=== PATIENT | male | born 1955 | race Caucasian/White ===

== ENCOUNTER 2017-02-21 03:04 | Inpatient (IN) | payer MEDICARE, OTHER ==
--- NOTE | ~2017-02-21 | HP ---
History And Physical [address] [place]. [address] NAME: ERNA WILLSON : 55 STATUS : ADM Elicia PAT#: [id number] AGE: 61 ADM/REG DATE : 02/21/17 MR#: [id number] REPORT SERV DATE: 02/21/17 DICTATED BY: ALVINO DELCID DATE: 02/21/17 REPORT STATUS : Draft TRANSCRIBED BY: MODL DATE: 02/21/17 DATE OF ADMISSION: 02/21/2017 CHIEF COMPLAINT: Chest pain and passing blood in the urine. HISTORY OF PRESENT ILLNESS: This is a 61-year-old obese white male, who has a history of diabetes mellitus, coronary artery disease with stents and hypertension, who presents to the emergency room at [facility] with the above-mentioned complaint. History is obtained from the patient, his family who is at bedside, and reviewing data available on the [employer] system. According to Mr. Willson, he was in his usual state of health until about a week or so when all of this started. On the one hand, he started having chest pain off and on, shooting pains which lasted about 20 seconds 30 seconds on a scale of 8/10 in intensity. This was sometimes associated with some diaphoresis as well. No radiation. No other associated symptoms. No aggravating or relieving factors. He also had blood in his urine during this time in the last one week when the home health nurses have been following along with his primary care physician. They had taken samples of his urine for testing, but had not come back with them with any referrals. Last night, his chest pain became unbearable and he was feeling very weak and decided to come to the emergency room to be evaluated. In the emergency room, initial workup revealed normal troponin. There was no significant change in his EKG. However, a CT scan of the abdomen and pelvis revealed bilateral hydronephrosis and stone in the ureteropelvic junction as well. He also had a urinary tract infection, pancytopenia, and Hospitalist Service is asked to admit him for further evaluation and treatment. At the time of my evaluation, he denied any chest pain, palpitations, or orthopnea. He had no cough, hemoptysis, night sweats, or weight loss. He denied any recent falls or loss of consciousness. He denied any fevers, chills, nausea, vomiting, diarrhea. He denied any recent hematemesis or hematochezia. He did have a gross hematuria. No history of recent travel or exposures other than those mentioned above. PAST MEDICAL HISTORY: Significant for history of diabetes mellitus type 2, coronary artery disease with stent placement followed by ornamenter outside. He has hypertension and history of atrial fibrillation as well. SOCIAL HISTORY: He does not smoke, drink, or use recreational drugs. FAMILY HISTORY: Noncontributory. MEDICATIONS AT HOME: Reviewed by me in the chart today and reordered by me. REVIEW OF SYSTEMS: As in history of present illness. All other systems were reviewed in detail and are quite unremarkable. History And Physical [address] [address] NAME: ERNA WILLSON : 55 STATUS : ADM Elicia PAT#: [id number] AGE: 61 ADM/REG DATE : 02/21/17 MR#: [id number] REPORT SERV DATE: 02/21/17 DICTATED BY: ALVINO DELCID DATE: 02/21/17 REPORT STATUS : Draft TRANSCRIBED BY: LUPILLO DATE: 02/21/17 PHYSICAL EXAMINATION: GENERAL: This is an obese 61-year-old male, not in any acute distress. HEENT: His head is atraumatic, normocephalic. He is alert, awake, oriented to time, place, and person. His pupils are equal, reacting to light and accommodating. External ocular muscles are intact. Membranes are moist and pink. Sclerae are nonicteric. NECK: Supple with no jugular venous distention, lymphadenopathy, or thyromegaly. LUNGS: Clear to auscultation with no wheezes, rubs, or crackles. HEART: Heart sounds were regular with no murmurs, rubs, or gallops. ABDOMEN: Soft, nontender. Bowel sounds are present. EXTREMITIES: Showed no cyanosis, clubbing, or edema. NEUROLOGIC: Grossly intact. No focal sensory or motor deficits. Higher functions appeared intact. VITAL SIGNS: His vital signs today showed a temperature of 97.8, pulse 72, respirations 18 a minute, blood pressure was 134/61, oxygen saturations were 98%, breathing 2 L of oxygen via nasal cannula. LABORATORY DATA: Reviewed on the [employer] system showed a sodium of 146, potassium 3.7, chloride 115, and CO2 of 23, BUN was 22 with a creatinine of 1.05, blood glucose was 131. Troponin was 0.02 today. CBC showed a white blood cell count of 3700, hemoglobin was 10.7, hematocrit 33.2, and platelet count was 101,000. Urinalysis showed large leukocyte esterase, nitrite was negative. There were greater than 182 rbc's and wbc's with many bacteria. Films of the CT scan of his abdomen and pelvis were reviewed by me on the PACS today and interpreted by me. Official radiology report was also reviewed. There is mild to moderate right hydronephrosis secondary to a 5-mm stone in the region of the UPJ and mild left hydronephrosis secondary to a 1.2 cm stone in the collecting system, which is migrated when compared to previous study. Nonobstructing bilateral renal stones. Please see report for all the details. Chest x-ray showed increased congestion. A 12-lead EKG done in the emergency room was also reviewed and interpreted by me. There is normal sinus rhythm with a rate of 75 with a right bundle-branch block. IMPRESSION: 1. Chest pain. 2. Ureterolithiasis, acute. 3. Bilateral hydronephrosis. 4. Pancytopenia, which is chronic. 5. Urinary tract infection. 6. Diabetes mellitus type 2. 7. Coronary artery disease with stent placement. 8. Hypertension. 9. History of atrial fibrillation. PLAN: We will admit Mr. Willson to the Hospitalist Service with cardiac telemetry for a 24- hour observation. We will follow troponins and EKG to rule out acute coronary syndrome. We will go ahead and consult Cardiology Service with [facility]. We will also consult Urology Service to evaluate him. Keep him n.p.o. and offer pain control as well. We will start him on IV fluids for volume replacement at this time. Follow chemistry, electrolytes and proceed History And Physical [address] [address] NAME: ERNA WILLSON : 55 STATUS : ADM Elicia PAT#: [id number] AGE: 61 ADM/REG DATE : 02/21/17 MR#: [id number] REPORT SERV DATE: 02/21/17 DICTATED BY: ALVINO DELCID DATE: 02/21/17 REPORT STATUS : Draft TRANSCRIBED BY: MODJasper DATE: 02/21/17 accordingly. We will also start him on blood sugar control with NovoLog given subcutaneously per sliding scale. After cultures are drawn, we will start him on empiric IV antibiotics for his urinary tract infection. Follow Gram stains and cultures and proceed accordingly. He will be placed on SCDs for DVT prophylaxis while here. Further recommendations will follow after subspecialists have had a chance to see him. Meanwhile, Hospitalist Service will be following him during his stay here. /LUPILLO Alvino Delcid M.D. / [id number] CC: MD CLARENCE Ding LISA M
--- NOTE | ~2017-02-21 | DS ---
Discharge Summary [facility] [address] [place]. [address] NAME: ERNA WILLSON : 55 STATUS : DIS IN PAT#: [id number] AGE: 61 ADM/REG DATE : 02/22/17 MR#: [id number] REPORT SERV DATE: 02/25/17 DICTATED BY: LENNY HERNANDEZ DATE: 02/24/17 REPORT STATUS : Draft TRANSCRIBED BY: MODL DATE: 02/24/17 ADMISSION DATE: 02/22/2017 DISCHARGE DATE: 02/24/2017 DISCHARGE DIAGNOSES: 1. Bilateral hydronephrosis due to bilateral nephrolithiasis, status post cystoscopy with stent placement. 2. Chronic pancytopenia. 3. Cryptogenic cirrhosis. 4. Urinary tract infection. 5. Diabetes type 2. 6. Coronary artery disease. 7. Hypertension. 8. History of atrial fibrillation. 9. Intractable postoperative pain. 10.Constipation. CONSULTANTS: 1. Urology. 2. Gastroenterology. HOSPITAL COURSE: This is a 61-year-old gentleman who was admitted to the hospital with bilateral flank pain and hydronephrosis due to kidney stones. For details, please refer to H and P by Dr. Tomas. In summary, the patient was admitted and was seen by Urology. Urology went ahead and performed a cystoscopy with bilateral ureteral stent placement. The plan is for a repeat ureteroscopy sometime next week as an outpatient. The patient also had complained of atypical chest pain, but he was ruled out of acute coronary syndrome with negative EKG and negative cardiac enzymes. The patient also had complaints of abdominal bloating and perceived thought of development of ascites. The patient was given reassurance based on CT findings that did not show any ascites, however, the patient insisted that GI be consulted. The patient was seen by GI, and they agreed that the patient did not have any ascites and the patient had a compensated cirrhosis. Bowel regimen was given to the patient with relief of some of his symptoms. Unfortunately, patient continued to complain of significant amount of pain postop in his kidneys. This is understandable given the fact the patient still does have kidney stones bilaterally in the renal pelvises, however, nothing much more could be done as patient will simply need to be followed up as an outpatient. This was again clarified by Dr. Segura, the urologist. After much persuasion, patient is now being discharged home with outpatient followup instructions. The patient is a high risk for readmission simply from poorly controlled pain, however, patient is at the point of discharge being discharged home with Percocet as well as Pyridium and Levaquin, which will hopefully keep patient comfortable enough until his followup with urologist. DISPOSITION: Home. DISCHARGE MEDICATIONS: 1. Percocet 5/325 one tab p.o. q.4 hours p.r.n., 15 tablets given. Discharge Summary [address] [address] NAME: ERNA WILLSON : 55 STATUS : DIS IN PAT#: [id number] AGE: 61 ADM/REG DATE : 02/22/17 MR#: [id number] REPORT SERV DATE: 02/25/17 DICTATED BY: LENNY HERNANDEZ DATE: 02/24/17 REPORT STATUS : Draft TRANSCRIBED BY: LUPILLO DATE: 02/24/17 2. Pyridium 100 mg p.o. t.i.d. x3 days. 3. Levaquin 750 mg p.o. daily x5 additional days. Otherwise, no changes to home medications. FOLLOWUP: 1. Please follow up with PCP in the next one to two days. 2. Please follow up with Urology as instructed. A total of 40 minutes spent in coordinating this patient's discharge, a lot of which included extensive counseling. DICTATED BY: MD MAUREEN Ding/LUPILLO Lenny Hernandez MD / [id number] CC: MD Mira Ding
--- NOTE | ~2017-02-21 | OP ---
Record Of Operation [facility] [address] [place]. [address] NAME: ERNA WILLSON : 55 STATUS : ADM Elicia PAT#: [id number] AGE: 61 ADM/REG DATE : 02/21/17 MR#: [id number] REPORT SERV DATE: 02/22/17 DICTATED BY: ZAHEER GARCIA III DATE: 02/21/17 REPORT STATUS : Draft TRANSCRIBED BY: MODL DATE: 02/21/17 DATE OF PROCEDURE: 02/21/2017 PROCEDURE: Cystoscopy, bilateral retrogrades, insertion of bilateral ureteral stents. PREOPERATIVE DIAGNOSIS: Bilateral renal pelvic stones with right flank pain and UTI. POSTOPERATIVE DIAGNOSIS: Bilateral renal pelvic stones with right flank pain and UTI. ANESTHESIA: General. SURGEON: Zaheer Garcia M.D. DESCRIPTION OF PROCEDURE: Following induction of adequate general anesthesia, the patient was placed in dorsal lithotomy position and prepped and draped in a sterile fashion. The leg was carefully placed in the stirrup due to the hip problems. He was prepped and draped and cystoscopy was done. The prostate was moderately enlarged. The bladder had a good bit of debris and the right retrograde showed a normal distal ureter. The mid ureter was dilated. The upper tract was not severely dilated; however, there was a filling defect in the proximal ureter which migrated up into the upper pole. A 6/26 stent was placed on this side with loop in the bladder and a loop in the kidney. On the left side, there were also filling defects. A Pollack was placed on this side and the urine was somewhat cloudy. The patient has already been cultured and he is on antibiotics, so a second culture was not sent. A 6/24 stent was placed on this side. Mcduffie catheter was placed. IMPRESSION: The impression is that of bilateral ureteral stones. We will await the culture and at some point next week, do a bilateral ureteroscopy. OB/MODL Zaheer Garcia III, M.D. / [id number] CC: MD EVI Ding
--- NOTE | ~2017-02-21 | CN ---
Consultation Report [facility] [address] [place]. [address] NAME: CATALINO WILLSON : 55 STATUS : ADM IN PAT#: [id number] AGE: 61 ADM/REG DATE : 02/22/17 MR#: [id number] REPORT SERV DATE: 02/23/17 DICTATED BY: MUKUL ARELLANO DATE: 02/23/17 REPORT STATUS : Draft TRANSCRIBED BY: MODL DATE: 02/23/17 GI CONSULTATION DATE OF CONSULTATION: 02/23/2017 REASON FOR CONSULTATION: Evaluation and management of patient's cirrhosis. HISTORY OF PRESENT ILLNESS: Mr. Catalino Willson is a 61-year-old male patient, who is known to Dr. Gen Charles, as well as Dr. Ambrosio Quinn in the outpatient setting, who presented to [facility] on 02/22/2017 with a chief complaint of chest pain as well as abdominal discomfort, hematuria. He was ultimately diagnosed by CT scan with bilateral nephrolithiasis, calculi in the renal pelvis, hydronephrosis. He underwent cysto with stent placement with Dr. Hanson on the 02/21/2017. Since that time, he has had his Mcduffie catheter removed; however, he has had difficulty urinating, plans are to replace the Mcduffie catheter. GI was consulted to see him secondary to his history of cirrhosis. He has recently seen Dr. Ambrosio Quinn in the outpatient setting on 02/09/2017 for cryptogenic cirrhosis, appears to be compensated. Last EGD was done on 12/20/2016 with findings of fundal varices, hypertensive gastropathy. The patient requested GI consultation secondary to his sensation of increasing abdominal girth, voice concerns that he has, "fluid buildup in his abdomen". CT scan done 02/21/2017 showed no ascites. We will discuss further with Dr. Sue benefits of ultrasound of the abdomen. No immediate plans at this moment in time, however we will follow. PAST MEDICAL HISTORY: He has a past medical history positive for cryptogenic cirrhosis, upper GI bleed secondary to hypertensive gastropathy, history of splenomegaly, portal hypertension, hepatic steatosis, hematochezia, internal hemorrhoids, history of DVTs and stent placement on Plavix, pseudotumor cerebri, COPD, chronic lymphedema of the left lower extremity with a history of MSSA and enterococcus, coronary artery disease, status post PCI, pancytopenia, anemia, obstructive sleep apnea, morbid obesity, type 2 diabetes, kidney stones. FAMILY HISTORY: Positive for hepatocellular carcinoma in his father. SOCIAL HISTORY: , lives independently, past tobacco, past alcohol. No illicits. ALLERGIES: LISTED TO DILAUDID. HOME MEDICATIONS: Diamox, Ventolin, Lipitor, Plavix, Flonase, Breo Ellipta, Lasix, Neurontin, Lantus, Humalog, Atrovent, Imdur, Cozaar, Glucophage, Toprol, Singulair, nitroglycerin, Protonix, Pravachol, Incruse Ellipta, and Poly-Iron. REVIEW OF SYSTEMS: A 10-point review of systems has been obtained with pertinent positives being addressed in the history of present illness. Consultation Report [place] [place] [facility] [place]. [address] NAME: CATALINO WILLSON : 55 STATUS : ADM IN [facility]#: [id number] AGE: 61 ADM/REG DATE : 02/22/17 MR#: [id number] REPORT SERV DATE: 02/23/17 DICTATED BY: MUKUL ARELLANO DATE: 02/23/17 REPORT STATUS : Draft TRANSCRIBED BY: MODJasper DATE: 02/23/17 PERTINENT LABORATORY DATA: Sodium 144, potassium 3.7, BUN is 18, creatinine is 0.96. White count 3.7, hemoglobin 10.2, hematocrit is 31.6, platelet count is 92. CO2 is 21, albumin 3.1, total bilirubin 0.5, alkaline phosphatase 100, ALT 20, AST 18. PHYSICAL EXAMINATION: VITAL SIGNS: Temperature 96.1, pulse is 64, respirations of 20, blood pressure 128/62. GENERAL: Reveals an alert, morbidly obese, male, resting in bed. In general, he is cooperative. He is in no apparent distress. He is awake, alert, oriented x3. No signs of asterixis. HEAD, EARS, EYES, NOSE, AND THROAT: Anicteric. Pupils are equal, round, reactive to light and accommodation. Normocephalic, atraumatic. NECK: Supple. No JVD. No palpable nodes. LUNGS: Diminished throughout with normal respiratory effort exhibited. CARDIOVASCULAR SYSTEM: Regular rate and rhythm. ABDOMEN: Obese, periumbilical hernia noted which reduces no appreciable ascites. Abdomen is soft, but tender to palpation to the right lower quadrant. Active bowel sounds. No organomegaly. EXTREMITIES: Positive for lower extremity edema. SKIN: Somewhat brawny on the lower extremities, warm, dry, and intact. ASSESSMENT/PLAN: 1. Compensated cryptogenic cirrhosis with splenomegaly, portal hypertension, and hepatic steatosis. 2. Kidney stones with hydronephrosis, status post cystoscopy with stents. 3. Urinary tract infection with gram negative rods to be identified. 4. Pancytopenia. 5. Hematuria. 6. Morbid obesity. 7. Type 2 diabetes. PLAN: 1. I had a long discussion with the patient. He is concerned for ascites. I did discuss with him CT scan on the 02/21/2017 showed no ascites at all. He still voices concern and that he has increased abdominal distention. We will check an ultrasound for ascites. 2. Check LFTs, PT/INR. 3. Continue Lasix. 4. Strict I's and O's. We will follow. DG/LUPILLO Bingham Consultation Report [address] [place]. [address] NAME: CATALINO WILLSON : 55 STATUS : ADM IN [facility]#: [id number] AGE: 61 ADM/REG DATE : 02/22/17 MR#: [id number] REPORT SERV DATE: 02/23/17 DICTATED BY: MUKUL ARELLANO DATE: 02/23/17 REPORT STATUS : Draft TRANSCRIBED BY: LUPILLO DATE: 02/23/17 ANTONIO Brandt / [id number] CC: MD Mira Ding
[2017-02-21 02:39] LABS: BASOPHILS 0.3 %; BASOPHILS ABSOLUTE 0.01 10/3/uL (0.0-0.16); EOSINOPHILS 1.9 %; EOSINOPHILS ABSOLUTE 0.07 10/3/uL (0.0-0.53); ER CBC TAT 0 Hrs 05 Mins; HEMATOCRIT 33.2 % (40.0-51.0); HEMOGLOBIN 10.7 g/dL (13.6-17.8); IMMATURE GRANULOCYTES 0.3 %; IMMATURE GRANULOCYTES ABSOLUTE 0.01 10/3/uL (0.0-0.11); LYMPHOCYTES 18.6 %; LYMPHOCYTES ABSOLUTE 0.69 10/3/uL (0.67-4.30); MANUAL DIFF NO %; MEAN CORPUS HGB CONC 32.2 g/dL (32.0-36.0); MEAN CORPUSCULAR HEMOGLOB 27.6 pg (26.0-34.0); MEAN CORPUSCULAR VOLUME 85.8 fL (80-100); MEAN PLATELET VOLUME 10.7 fL (9.2-13.0); MONOCYTES ABSOLUTE 0.37 10/3/uL (0.21-1.20); NEUTROPHILS 68.9 %; NEUTROPHILS ABSOLUTE 2.55 10/3/uL (2.02-8.40); PLATELET COUNT 101 10/3/uL (150-400); RBC DISTRIBUTION WIDTH 15.3 % (12.0-16.0); RED CELL COUNT 3.87 10/6/uL (4.7-6.1); WHITE BLOOD CELLS 3.7 10/3/uL (4.5-10.5)
[2017-02-21 02:55] LABS: ALBUMIN 3.1 G/DL (3.5-5.0); CALCIUM, SERUM 8.7 MG/DL (8.5-10.4); CHEST PAIN PROFILE TAT 0 Hrs 21 Mins; CHLORIDE, SERUM 115 MMOL/L (96-112); CO2 (CARBON DIOXIDE) 23 MMOL/L (24-34); CREATININE 1.05 MG/DL (0.70-1.30); DIRECT BILIRUBIN 0.1 MG/DL (0.0-0.4); GFR AFRICAN AMERICAN 88 ML/MIN (>=60); GFR NON AFRICAN AMERICAN 76 ML/MIN (>=60); GLUCOSE, SERUM 131 MG/DL (60-99); INDIRECT BILIRUBIN(NOT ORDER) 0.4 MG/DL (0.1-0.9); SGOT(AST) 18 U/L (5-40); SGPT(ALT) 20 U/L (5-65); TOTAL BILIRUBIN 0.5 MG/DL (0-1.2); TOTAL PROTEIN 6.8 G/DL (6.0-8.5); TROPONIN I <0.02 NG/ML (<0.05)
[2017-02-21 02:56] LABS: ALKALINE PHOSPHATASE 100 U/L (45-117); BUN (BLOOD UREA NITROGEN) 22 MG/DL (6-23); POTASSIUM, SERUM 3.7 MMOL/L (3.5-5.3); SODIUM, SERUM 146 MMOL/L (135-148)
[~2017-02-21 03:04] MED LIST: ASA5GR PO; ASAB PO; ATRONASAL6 NAS; AUG875 PO; BREO ELLIPTA INH; COMBIVENT RESPIM4 GM INH; CONSTULOSE PO; COUMADIN10 MG PO; COUMADIN7.5 MG PO; COZ50 PO; DIAMSEQ PO; DULERA 100 MCG/13 GM INH; FESO4 PO; FOLIC PO; GLUCPH8 PO; HUMALOGPEN SC; ISORDIL20 PO; ISOSORB DIN30 MG PO; KDUR20 PO; L20 PO; LANTUS SC; LANTUSCART SC; LINZESS 290 M290 MCG PO; LIPITOR20 PO; LOVENOX150 SC; NEUR300 PO; NITROSTAT0.4 MG SL; NORCO1 TA1 PO; NOVOLOG SC; P10; P20 PO; PLAVIX PO; PRAVACHOL40 MG PO; PROAIR HFA INH; PROTONIX PO; SPIRIVA DEVI; SPIRIVA INH; SUCR PO; TEARS NATURA OPH; TOPAMAX50 MG PO; TOPXL25 PO; ULTRAM50 PO
[2017-02-21 03:09] LABS: INTERNATIONAL NORMAL RATI 1.7 UNITS (-)
[2017-02-21 03:10] LABS: PARTIAL THROMBO TIME 37.1 SEC (22.5-37.2)
[2017-02-21 04:33] LABS: ASCORBIC ACID (UR NOT ORDER) NEG (NEG); BILIRUBIN, URINE NEGATIVE (NEG); ER URINALYSIS TAT 0 Hrs 11 Mins; KETONE, URINE NEGATIVE (NEG); LEUKOCYTE ESTERASE(NOT OR LARGE (NEG); NITRITE (URINE) NEG (NEG); WBC (NOT ORDERED) (RFLEX) > 182 (0-5)
[2017-02-21] MEDS ORDERED: LIPITOR40 PO (06:02)
[2017-02-21] MEDS ORDERED: C5 PO (06:04)
[2017-02-21] MEDS ORDERED: PRAVACHOL40 MG PO (06:07)
[2017-02-21] MEDS ORDERED: SINGULAIR1 PO (06:08)
[2017-02-21] MEDS ORDERED: IMDUR30 PO (06:10)
[2017-02-21] MEDS ORDERED: BREO ELLIPTA 21 EACH INH (06:16)
[2017-02-21] MEDS ORDERED: INCRUSE ELLI62.5 MCG INH (06:17)
[2017-02-21] MEDS ORDERED: POLY-IRON PO (06:21)
[2017-02-21] MEDS ORDERED: LANTUS SC ×3 (06:23→09:14)
[2017-02-21] MEDS ORDERED: *UNABLE3 (06:26)
[2017-02-21] MEDS ORDERED: VENTOLIN HFA INH (09:10)
[2017-02-21] MEDS ORDERED: FLONASE NAS (09:11)
[2017-02-21] MEDS ORDERED: HUMALOG SC (09:14)
[2017-02-21 10:05] LABS: BASOPHILS 0.3 %; BASOPHILS ABSOLUTE 0.01 10/3/uL (0.0-0.16); EOSINOPHILS 1.7 %; EOSINOPHILS ABSOLUTE 0.06 10/3/uL (0.0-0.53); HEMATOCRIT 32.3 % (40.0-51.0); HEMOGLOBIN 10.4 g/dL (13.6-17.8); IMMATURE GRANULOCYTES 0.6 %; IMMATURE GRANULOCYTES ABSOLUTE 0.02 10/3/uL (0.0-0.11); LYMPHOCYTES 21.6 %; LYMPHOCYTES ABSOLUTE 0.74 10/3/uL (0.67-4.30); MEAN CORPUS HGB CONC 32.2 g/dL (32.0-36.0); MEAN CORPUSCULAR HEMOGLOB 27.8 pg (26.0-34.0); MEAN CORPUSCULAR VOLUME 86.4 fL (80-100); MEAN PLATELET VOLUME 10.3 fL (9.2-13.0); MONOCYTES 8.5 %; MONOCYTES ABSOLUTE 0.29 10/3/uL (0.21-1.20); NEUTROPHILS 67.3 %; NEUTROPHILS ABSOLUTE 2.31 10/3/uL (2.02-8.40); PLATELET COUNT 93 10/3/uL (150-400); RBC DISTRIBUTION WIDTH 15.2 % (12.0-16.0); RED CELL COUNT 3.74 10/6/uL (4.7-6.1); WHITE BLOOD CELLS 3.4 10/3/uL (4.5-10.5)
[2017-02-21 10:06] LABS: MANUAL DIFF NO %
[2017-02-21 10:17] LABS: BUN (BLOOD UREA NITROGEN) 23 MG/DL (6-23); CALCIUM, SERUM 8.3 MG/DL (8.5-10.4); CHLORIDE, SERUM 117 MMOL/L (96-112); CO2 (CARBON DIOXIDE) 21 MMOL/L (24-34); CREATININE 0.97 MG/DL (0.70-1.30); GFR AFRICAN AMERICAN 97 ML/MIN (>=60); GFR NON AFRICAN AMERICAN 84 ML/MIN (>=60); GLUCOSE, SERUM 117 MG/DL (60-99); PHOSPHORUS, SERUM 3.3 MG/DL (2.5-4.5); POTASSIUM, SERUM 3.8 MMOL/L (3.5-5.3); SODIUM, SERUM 146 MMOL/L (135-148); TROPONIN I <0.02 NG/ML (<0.05)
[2017-02-22 02:39] LABS: HEMOGLOBIN 11.2 g/dL (13.6-17.8); MANUAL DIFF YES %; MEAN CORPUSCULAR HEMOGLOB 28.1 pg (26.0-34.0); MEAN CORPUSCULAR VOLUME 87.7 fL (80-100); MEAN PLATELET VOLUME 10.3 fL (9.2-13.0); PLATELET COUNT 98 10/3/uL (150-400); RBC DISTRIBUTION WIDTH 15.2 % (12.0-16.0); RED CELL COUNT 3.99 10/6/uL (4.7-6.1); WHITE BLOOD CELLS 3.6 10/3/uL (4.5-10.5)
[2017-02-22 02:55] LABS: BUN (BLOOD UREA NITROGEN) 20 MG/DL (6-23); CALCIUM, SERUM 8.1 MG/DL (8.5-10.4); CHLORIDE, SERUM 117 MMOL/L (96-112); CO2 (CARBON DIOXIDE) 24 MMOL/L (24-34); CREATININE 0.89 MG/DL (0.70-1.30); GFR AFRICAN AMERICAN 107 ML/MIN (>=60); GFR NON AFRICAN AMERICAN 92 ML/MIN (>=60); GLUCOSE, SERUM 113 MG/DL (60-99); POTASSIUM, SERUM 3.8 MMOL/L (3.5-5.3); SODIUM, SERUM 147 MMOL/L (135-148); TROPONIN I <0.02 NG/ML (<0.05)
[2017-02-22 03:10] LABS: BAND NEUTROPHILS 2 %; LYMPHOCYTES 13 %; LYMPHOCYTES ABSOLUTE (CALC) 0.47 10/3/uL (0.67-4.30); MONOCYTES 3 %; MONOCYTES ABSOLUTE (CALC) 0.11 10/3/uL (0.21-1.20); NEUTROPHILS ABSOLUTE (CALC) 3.02 10/3/uL (2.02-8.40); PLATELET ESTIMATE DEC (ADEQUATE); RBC MORPHOLOGY NORM (NORMAL); SEGMENTED NEUTROPHIL (0) 82 %; TOTAL NUCLEATED CELLS 100
[2017-02-22 20:26] LABS: TROPONIN I <0.02 NG/ML (<0.05)
[2017-02-22 20:27] LABS: CK-MB 1.8 NG/ML; CPK 163 U/L (0-200)
[2017-02-23 05:03] LABS: BASOPHILS 0.3 %; BASOPHILS ABSOLUTE 0.01 10/3/uL (0.0-0.16); EOSINOPHILS 1.4 %; EOSINOPHILS ABSOLUTE 0.05 10/3/uL (0.0-0.53); HEMATOCRIT 31.6 % (40.0-51.0); HEMOGLOBIN 10.2 g/dL (13.6-17.8); IMMATURE GRANULOCYTES 0.3 %; IMMATURE GRANULOCYTES ABSOLUTE 0.01 10/3/uL (0.0-0.11); LYMPHOCYTES 18.3 %; LYMPHOCYTES ABSOLUTE 0.67 10/3/uL (0.67-4.30); MEAN CORPUS HGB CONC 32.3 g/dL (32.0-36.0); MEAN CORPUSCULAR HEMOGLOB 28.3 pg (26.0-34.0); MEAN CORPUSCULAR VOLUME 87.8 fL (80-100); MEAN PLATELET VOLUME 10.1 fL (9.2-13.0); MONOCYTES 10.4 %; MONOCYTES ABSOLUTE 0.38 10/3/uL (0.21-1.20); NEUTROPHILS 69.3 %; NEUTROPHILS ABSOLUTE 2.55 10/3/uL (2.02-8.40); PLATELET COUNT 92 10/3/uL (150-400); RBC DISTRIBUTION WIDTH 15.3 % (12.0-16.0); WHITE BLOOD CELLS 3.7 10/3/uL (4.5-10.5)
[2017-02-23 05:05] LABS: MANUAL DIFF NO %
[2017-02-23 05:06] LABS: BUN (BLOOD UREA NITROGEN) 18 MG/DL (6-23); CALCIUM, SERUM 7.6 MG/DL (8.5-10.4); CHLORIDE, SERUM 116 MMOL/L (96-112); CO2 (CARBON DIOXIDE) 21 MMOL/L (24-34); CPK 149 U/L (0-200); CREATININE 0.96 MG/DL (0.70-1.30); GFR AFRICAN AMERICAN 98 ML/MIN (>=60); GFR NON AFRICAN AMERICAN 85 ML/MIN (>=60); POTASSIUM, SERUM 3.7 MMOL/L (3.5-5.3); SODIUM, SERUM 144 MMOL/L (135-148); TROPONIN I <0.02 NG/ML (<0.05)
[2017-02-23 05:07] LABS: CK-MB 2.5 NG/ML; GLUCOSE, SERUM 161 MG/DL (60-99)
[2017-02-23 11:58] LABS: TROPONIN I <0.02 NG/ML (<0.05)
[2017-02-23 11:59] LABS: CK-MB 2.8 NG/ML; CPK 173 U/L (0-200)
[2017-02-24 05:11] LABS: BASOPHILS 0.3 %; BASOPHILS ABSOLUTE 0.01 10/3/uL (0.0-0.16); EOSINOPHILS 2.1 %; EOSINOPHILS ABSOLUTE 0.08 10/3/uL (0.0-0.53); HEMATOCRIT 32.4 % (40.0-51.0); HEMOGLOBIN 10.3 g/dL (13.6-17.8); IMMATURE GRANULOCYTES 0.3 %; IMMATURE GRANULOCYTES ABSOLUTE 0.01 10/3/uL (0.0-0.11); LYMPHOCYTES 19.3 %; LYMPHOCYTES ABSOLUTE 0.73 10/3/uL (0.67-4.30); MEAN CORPUS HGB CONC 31.8 g/dL (32.0-36.0); MEAN CORPUSCULAR HEMOGLOB 28.1 pg (26.0-34.0); MEAN CORPUSCULAR VOLUME 88.5 fL (80-100); MEAN PLATELET VOLUME 9.9 fL (9.2-13.0); MONOCYTES 7.7 %; MONOCYTES ABSOLUTE 0.29 10/3/uL (0.21-1.20); NEUTROPHILS 70.3 %; NEUTROPHILS ABSOLUTE 2.66 10/3/uL (2.02-8.40); PLATELET COUNT 90 10/3/uL (150-400); RED CELL COUNT 3.66 10/6/uL (4.7-6.1); WHITE BLOOD CELLS 3.8 10/3/uL (4.5-10.5)
[2017-02-24 05:14] LABS: MANUAL DIFF NO %
[2017-02-24 05:15] LABS: INTERNATIONAL NORMAL RATI 1.5 UNITS (-); PROTIME (NOT ORD) 18.2 SEC (12.0-14.5)
[2017-02-24 05:29] LABS: ALBUMIN 2.6 G/DL (3.5-5.0); BUN (BLOOD UREA NITROGEN) 15 MG/DL (6-23); CALCIUM, SERUM 7.6 MG/DL (8.5-10.4); CHLORIDE, SERUM 116 MMOL/L (96-112); CO2 (CARBON DIOXIDE) 22 MMOL/L (24-34); CREATININE 0.85 MG/DL (0.70-1.30); DIRECT BILIRUBIN 0.2 MG/DL (0.0-0.4); GFR AFRICAN AMERICAN 109 ML/MIN (>=60); GFR NON AFRICAN AMERICAN 94 ML/MIN (>=60); INDIRECT BILIRUBIN(NOT ORDER) 0.7 MG/DL (0.1-0.9); POTASSIUM, SERUM 3.9 MMOL/L (3.5-5.3); SGOT(AST) 17 U/L (5-40); SGPT(ALT) 15 U/L (5-65); SODIUM, SERUM 143 MMOL/L (135-148); TOTAL BILIRUBIN 0.9 MG/DL (0-1.2)
[2017-02-24 05:30] LABS: ALKALINE PHOSPHATASE 84 U/L (45-117); GLUCOSE, SERUM 101 MG/DL (60-99)
[2017-02-24 06:31] LABS: PROCALCITONIN 0.06 ng/mL (<0.5)
[2017-02-24] MEDS ORDERED: AZO-STANDARD95 MG PO (15:34)
[2017-02-24] MEDS ORDERED: CONSTULOSE PO (15:36)
[2017-02-24] MEDS ORDERED: CEFT5 PO (15:38)
[2017-02-24] MEDS ORDERED: PYR100B PO (15:38)
[2017-02-24] MEDS ORDERED: PCET PO (15:39)
[2017-04-18] MEDS ORDERED: PROVHFA INH (16:59)
[2017-04-18] MEDS ORDERED: PROTONIX PO (16:59)
[2017-04-18] MEDS ORDERED: D 5000 PO (17:00)
[2017-04-18] MEDS ORDERED: SINGULAIR1 PO (17:00)
[2017-04-18] MEDS ORDERED: CYANO1000T PO (17:01)
[2017-04-18] MEDS ORDERED: GLUCPH8 PO (17:01)
[2017-04-18] MEDS ORDERED: L20 PO (17:01)
[2017-04-18] MEDS ORDERED: POLY IRON 150 MG PO (17:02)
[2017-04-18] MEDS ORDERED: LIPITOR40 PO (17:02)
[2017-04-18] MEDS ORDERED: C5 PO (17:03)
[2017-04-18] MEDS ORDERED: NEUR300 PO (17:03)
[2017-04-18] MEDS ORDERED: NITROSTAT0.4 MG SL (17:03)
[2017-04-18] MEDS ORDERED: COZ50 PO (17:04)
[2017-04-18] MEDS ORDERED: IMDUR30 PO (17:04)
[2017-04-18] MEDS ORDERED: PLAVIX PO (17:05)
[2017-04-18] MEDS ORDERED: NOVOLOG SC (17:05)
[2017-04-18] MEDS ORDERED: LANTUS SC (17:05)
[2017-04-18] MEDS ORDERED: INCRUSE ELLI62.5 MCG INH (17:05)
[2017-04-18] MEDS ORDERED: BREO ELLIPTA 21 EACH INH (17:06)
[2017-04-18] MEDS ORDERED: FLONASE NAS (17:07)
[2017-04-18] MEDS ORDERED: ATRONASAL6 NAS (17:07)
[2017-04-28] MEDS ORDERED: PERCOCET 10/3251 TAB PO (20:04)
[2017-04-28] MEDS ORDERED: FLOMAX4 PO (20:05)
[2017-06-21] MEDS ORDERED: INCRUSE ELLI62.5 MCG INH (01:19)
[2017-06-21] MEDS ORDERED: FLONASE NAS (01:19)
[2017-06-21] MEDS ORDERED: ATRONASAL6 NAS (01:19)
[2017-06-21] MEDS ORDERED: BREO ELLIPTA 21 EACH INH (01:19)
[2017-06-21] MEDS ORDERED: C5 PO (01:20)
[2017-06-21] MEDS ORDERED: SINGULAIR1 PO (01:20)
[2017-06-21] MEDS ORDERED: ATV1 PO (01:20)
[2017-06-21] MEDS ORDERED: VENTOLIN HFA INH (01:20)
[2017-06-21] MEDS ORDERED: IMDUR30 PO (01:21)
[2017-06-21] MEDS ORDERED: LIPITOR40 PO (01:21)
[2017-06-21] MEDS ORDERED: NITROSTAT0.4 MG SL (01:21)
[2017-06-21] MEDS ORDERED: NEUR300 PO (01:22)
[2017-06-21] MEDS ORDERED: POLY-IRON 150MG PO (01:23)
[2017-06-21] MEDS ORDERED: COZ50 PO (01:23)
[2017-06-21] MEDS ORDERED: L20 PO (01:23)
[2017-06-21] MEDS ORDERED: FLOMAX4 PO (01:23)
[2017-06-21] MEDS ORDERED: GLUCPH8 PO (01:24)
[2017-06-21] MEDS ORDERED: PLAVIX PO (01:26)
[2017-06-21] MEDS ORDERED: NOVOLOG SC ×2 (01:26)
[2017-06-21] MEDS ORDERED: PROTONIX PO (01:27)
[2017-06-21] MEDS ORDERED: LANTUS SC (01:28)
[2017-06-21] MEDS ORDERED: VITAMIN D31000 UNIT PO (01:28)
[2017-06-21] MEDS ORDERED: VITAMIN B-122500 MCG SL (01:28)
== END 2017-02-24 18:15 | disposition home health service (06) | DRG 690 ==
LOC: ER 03:04 → 6NO 05:35
PROVIDERS: Internal Medicine; Internal Medicine Pulmonary Disease; Nurse Practitioner Family; Specialist; Urology
PROC: BT1B1ZZ Fluoroscopy of Bladder and Urethra using Low Osmolar Contrast (ICD-10-PCS; 2017-02-21)
PROC: 0T788DZ Dilation of Bilateral Ureters with Intraluminal Device, Via Natural or Artificial Opening Endoscopic (ICD-10-PCS; principal; 2017-02-21 15:15)
DX: N13.6 Pyonephrosis (principal); D61.818 Other pancytopenia; I85.00 Esophageal varices without bleeding; Z68.41 Body mass index [BMI] 40.0-44.9, adult; K76.6 Portal hypertension; E66.01 Morbid (severe) obesity due to excess calories; I48.91 Unspecified atrial fibrillation; K74.60 Unspecified cirrhosis of liver; I25.10 Atherosclerotic heart disease of native coronary artery without angina pectoris; E11.9 Type 2 diabetes mellitus without complications; G89.18 Other acute postprocedural pain; K59.00 Constipation, unspecified; K31.89 Other diseases of stomach and duodenum; K76.0 Fatty (change of) liver, not elsewhere classified; J44.9 Chronic obstructive pulmonary disease, unspecified; N40.1 Benign prostatic hyperplasia with lower urinary tract symptoms; N32.89 Other specified disorders of bladder; K64.9 Unspecified hemorrhoids; D73.2 Chronic congestive splenomegaly; R31.0 Gross hematuria; B96.4 Proteus (mirabilis) (morganii) as the cause of diseases classified elsewhere; Z86.718 Personal history of other venous thrombosis and embolism; Z79.02 Long term (current) use of antithrombotics/antiplatelets; Z87.442 Personal history of urinary calculi; Z88.5 Allergy status to narcotic agent; Z87.891 Personal history of nicotine dependence; Z79.4 Long term (current) use of insulin; Z80.0 Family history of malignant neoplasm of digestive organs
CPT/HCPCS: 36415; 71010; 74000; 74176; 74420; 80048; 80076; 81001; 82550; 82553; 82962; 83735; 84100; 84145; 84484; 85025; 85610; 85730; 86850; 86900; 86901; 87040; 87077; 87086; 87186; 93005; 94640; 96374; 96375; 99285; A9270-GY; C1758; C1769; C2617; J0330; J2250; J2270; J2405; J3010; Q9967

== ENCOUNTER 2017-03-14 23:59 | Inpatient (IN) | payer MEDICARE, OTHER ==
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
--- NOTE | ~2017-03-14 | DS ---
Discharge Summary [facility] [address] [facility] [place]. [address] NAME: ERNA WILLSON : 55 STATUS : DIS IN PAT#: [id number] AGE: 61 ADM/REG DATE : 03/15/17 MR#: [id number] REPORT SERV DATE: 03/21/17 DICTATED BY: DATE: REPORT STATUS : Draft TRANSCRIBED BY: MODL DATE: 03/18/17 ADMISSION DATE: 03/15/2017 DISCHARGE DATE: 03/18/2017 The patient was admitted to the [facility]. CONSULTANTS: Dr. Zaheer Hanson of Urology. Dr. Ji Kiser of Cardiology. DISCHARGE DIAGNOSES: 1. Systemic inflammatory response syndrome due to bilateral pyelonephritis-Pseudomonas on culture. 2. Recent indwelling Mcduffie catheterization with evidence of Mcduffie catheter dysfunction and obstructive uropathy at admission. Mcduffie catheter removed and the patient is able to void independently at the time of discharge. 3. Nephrolithiasis with recent bilateral hydronephrosis necessitating stent placement (prior admission). 4. Paroxysmal atrial fibrillation-on chronic anticoagulation-held at discharge for upcoming stent exchange and bilateral percutaneous nephrostomy. 5. Hypotension at admission-largely resolved, but necessitating adjustments in home blood pressure medications at the time of discharge. 6. Pwi-kgcnnzw-jhjdwbjfv diabetes mellitus type 2-controlled. 7. Hyperlipidemia. 8. History of coronary artery disease with remote cardiac stenting-Plavix and aspirin held at discharge for upcoming stent exchange and bilateral percutaneous nephrostomy tubes. 9. History of cryptogenic cirrhosis. 10.Stable pancytopenia, due to cirrhosis. 11.History of chronic obstructive pulmonary disease-oxygen dependent. 12.Morbid obesity. 13.Functionally bed-bound. 14.Chronic bilateral lower extremity lymphedema. 15.History of pulmonary embolism and deep venous thrombosis. 16.History of cerebrovascular accident. IMAGING: Stone protocol CT abdomen and pelvis on 03/14/2017; bilateral stents, bilateral stones. Chronic deformity of the right femur and hip joint with small fluid collection. PERTINENT LABS: Admission creatinine 0.9, discharge creatinine 0.9. Glucose values between 100 and 140. Normal liver enzymes. Lactate 1.1. Initial white blood cell count 6.4, 3.0 at discharge-which is the patient's baseline. Hemoglobin 9.5, hematocrit 30.9, platelets 145. INR 1.8. Urinalysis; large blood, small leukocyte esterase, 272 red cells, and 35 white blood cells. Blood cultures x2; no growth. Urine culture; greater than 100,000 colony-forming units of Pseudomonas, resistant to Zosyn and aztreonam, with indeterminate resistance to cefepime and meropenem. BRIEF HISTORY: For full details, please see the previously dictated history of present illness by Dr. Alvino Tomas. This is a 61-year-old white male with history of bilateral Discharge Summary [address] [address] NAME: ERNA WILLSON : 55 STATUS : DIS IN PAT#: [id number] AGE: 61 ADM/REG DATE : 03/15/17 MR#: [id number] REPORT SERV DATE: 03/21/17 DICTATED BY: DATE: REPORT STATUS : Draft TRANSCRIBED BY: MODL DATE: 03/18/17 nephrolithiasis, recently admitted here and had bilateral ureteral stent placement for bilateral hydronephrosis. He was discharged home on 02/24/2017 with a Mcduffie catheter in place. The patient returned on 03/15/2017 with 24 hours of fever, chills, severe right flank pain, and weakness. Initial workup in the emergency department demonstrated urinary tract infection and hypotension. Furthermore, CT of abdomen and pelvis showed new calculus in the lower pole of the ga of the left kidney. The patient also had evidence of urine in the bladder despite presence of Mcduffie catheter. He was admitted to the Hospitalist Service for management of the above. HOSPITAL COURSE: The patient was admitted to [address] [place] [address] and placed on empiric Zosyn. Dr. Hanson was consulted, and the patient was kept n.p.o. Dr. Hanson saw the patient on the morning of 03/15/2017 and performed Mcduffie catheter exchange at the bedside, thinking that the pyelonephritis was the likely cause to incorrect Mcduffie catheter placement and urinary retention despite presence of the Mcduffie catheter. The patient felt somewhat better after replacement of the Mcduffie catheter, but continued to manifest some low-grade fevers overnight on 03/16/2017 and continued to complain of right flank pain. That morning, the plan potentially was for stent exchange, however, subsequent urine culture demonstrated Pseudomonas, which was resistant to the antibiotic, which the patient was placed on (Zosyn). This was discussed with Dr. Hanson, and the patient was changed to Levaquin for susceptibilities, with ongoing improvement in his symptoms through the remainder of hospitalization. There was no need for surgical intervention this admission, but the patient is to follow up with Dr. Hanson on Monday at [facility] for bilateral stent exchange and consideration of bilateral percutaneous nephrostomies for treatment of his kidney stones. Cardiology consultation was obtained by Urology for recommendations regarding the patient's chronic anticoagulation. They agreed with discontinuation of Plavix and Coumadin in the perioperative period and recommended aspirin if possible. This was discussed with Urology prior to discharge, but given the extent of planned surgery on Monday, it is not feasible to continue the patient on any type of antiplatelet agent or blood thinners at present. The patient was hypotensive throughout the hospitalization despite adequate fluid resuscitation. Discharge systolic blood pressure values range between 110 to 115. All of his blood pressure medications were held this admission. Hold parameters were ordered for discharge and his cardiac medication regimen will need to be re-evaluated by Cardiology at some point in the near future. It seems that his blood pressure likely will not tolerate the doses of medications that he has been on chronically. DISCHARGE DISPOSITION: The patient is discharged to home in the care of his supportive with no specific activity restrictions. He should adhere to a diabetic/cardiac diet for comorbidities, remain n.p.o. after midnight on Monday for surgery on Monday. DISCHARGE MEDICATIONS: Include: 1. Lipitor 20 mg p.o. q.h.s. 2. Iron Complex 150 mg p.o. daily. 3. Flonase one spray in each nostril daily. Discharge Summary [address] [address] NAME: ERNA WILLSON : 55 STATUS : DIS IN PAT#: [id number] AGE: 61 ADM/REG DATE : 03/15/17 MR#: [id number] REPORT SERV DATE: 03/21/17 DICTATED BY: DATE: REPORT STATUS : Draft TRANSCRIBED BY: LUPILLO DATE: 03/18/17 4. Neurontin 300 mg p.o. three times a day. 5. Atrovent two sprays in each nostril three times a day. 6. Incruse Ellipta one puff inhaled daily. 7. Lactulose 30 mL p.o. twice a day. 8. Singulair 10 mg p.o. daily. 9. Pantoprazole 40 mg p.o. daily. 10.Sublingual nitroglycerin 0.4 mg as needed for chest pain. 11.Breo 200/25 mcg one puff inhaled daily. 12.Ventolin two puffs inhaled every four hours as needed. 13.Imdur 30 mg p.o. twice a day-hold if systolic blood pressure less than or equal to 110. 14.Cozaar 50 mg p.o. daily-hold if systolic blood pressure less than or equal to 110. 15.Metformin 850 mg p.o. twice a day. 16.Humalog 50/50, 10 units subcu three times a day. 17.Hydrocodone/acetaminophen 5/325 mg p.o. every four hours as needed. 18.Levaquin 750 mg p.o. daily for 11 days-to complete 14-day course for complicated UTI with stents in place. 19.Pyridium 100 mg p.o. every eight hours as needed for dysuria. Lasix and Diamox are on hold at discharge because of hypotension. Thirty five minutes was spent in completion of the discharge. DICTATED BY: Dallas Dorman/LUPILLO Angel Luis Quezada M.D. / [id number] CC: Dallas Dorman LISA M Oliver Benton III, M.D. KENDRICK MILLS, MD
--- NOTE | ~2017-03-14 | HP ---
History And Physical [address] [id number] [place]. [address] NAME: ERNA WILLSON : 55 STATUS : ADM Elicia PAT#: [id number] AGE: 61 ADM/REG DATE : 03/15/17 MR#: [id number] REPORT SERV DATE: 03/15/17 DICTATED BY: ALVINO DELCID DATE: 03/15/17 REPORT STATUS : Draft TRANSCRIBED BY: MODL DATE: 03/15/17 DATE OF ADMISSION: 03/15/2017 CHIEF COMPLAINT: Bilateral flank pain, shaking chills and fever. HISTORY OF PRESENT ILLNESS: This is a 61-year-old male who has a history of urinary tract infections and nephrolithiasis, recently admitted as an inpatient and treated here for bilateral hydronephrosis, was seen by Dr. Hanson and had bilateral ureteral stent placements and was discharged on 02/24/2017. He returns today for 24 hours of fever, chills, and severe flank pain. History is obtained from the patient and his who is at bedside and reviewing data available on the [employer] system. According to available data, he was doing reasonably well after his discharge from the hospital when yesterday when they went to the grocery store, he started feeling weak overall, and according to the , he was not himself at all. He had to hang on to objects to help him not fall down. His states he also had shaking chills and drenching sweats at that time as well. Subsequently, EMS was called and patient was brought to the emergency room to be evaluated. In the emergency room, initial workup revealed he had a urinary tract infection and hypokalemia and with the history of recent bilateral stent placement, Hospitalist Service was asked to admit him for further evaluation and treatment. Furthermore, CT of the abdomen and pelvis showed new calculus in the lower pole of the calyx of the left kidney. At the time of my evaluation, he denied any chest pain or palpitations. He had no orthopnea. He did not have any cough, hemoptysis, night sweats, or weight loss. He has not had any recent falls or loss of consciousness, although the says he has been quite weak and came close to falling down. He did have chills as described above in the last 24 hours. Denied any nausea, vomiting, or diarrhea. No other history of recent travel or exposures other than those mentioned above. PAST MEDICAL HISTORY: Significant for history of bilateral nephrolithiasis with stent placement secondary to hydronephrosis. He has essential hypertension, coronary artery disease with stent placement, and diabetes mellitus type 2. SOCIAL HISTORY: He does not smoke, drink, or use recreational drugs. FAMILY HISTORY: Noncontributory. MEDICATIONS: At home were reviewed by me in the chart today and reordered by me. REVIEW OF SYSTEMS: As in history of present illness. All other systems were reviewed in detail and are quite unremarkable. PHYSICAL EXAMINATION: History And Physical [address] [address] NAME: ERNA WILLSON : 55 STATUS : ADM Elicia PAT#: [id number] AGE: 61 ADM/REG DATE : 03/15/17 MR#: [id number] REPORT SERV DATE: 03/15/17 DICTATED BY: ALVINO DELCID DATE: 03/15/17 REPORT STATUS : Draft TRANSCRIBED BY: LUPILLO DATE: 03/15/17 GENERAL: This is a pleasant, obese 61-year-old, not in any acute distress. HEENT: His head is atraumatic, normocephalic. His pupils are equal, reacting to light and accommodating. Membranes are moist and pink. Sclerae are nonicteric. NECK: Supple with no jugular venous distention, lymphadenopathy, or thyromegaly. LUNGS: Clear to auscultation with no wheezes, rubs, or crackles. HEART: Heart sounds are regular with no murmurs, rubs, or gallops. ABDOMEN: Soft. There is some tenderness to palpation in both flanks. Bowel sounds are present. There is no guarding or rigidity. EXTREMITIES: Showed bilateral pitting lower extremity edema with redness and swelling of both legs. There has been no change in this since his last admission here according to the . NEUROLOGIC: Grossly intact. No focal sensory or motor deficits. Higher functions appear intact. Gait was not examined today. VITAL SIGNS: His temperature was 98.8 upon arrival, pulse was 109, and respirations were 20 a minute. His blood pressure upon arrival was 141/55. Oxygen saturations were 97%, breathing 2 L of oxygen via nasal cannula. LABORATORY DATA: Reviewed on the [employer] system showed sodium of 142, potassium was 3.3, chloride 114, and CO2 of 20. BUN was 17 with a creatinine of 0.94 and blood glucose was 167. His alkaline phosphatase was 124. ALT and AST were within normal limits. His lactate was 1.1 today. CBC showed white blood cell count of 6400, hemoglobin was 10.5, hematocrit 32.2, and platelet count was 141,000. His prothrombin time was 23.5 with an INR of 2.1 today. Urinalysis showed large blood with large leukocyte esterase, nitrite was negative, there were greater than 182 rbc's and wbc's seen. Films of the CT scan of his abdomen and pelvis done today were reviewed by me in the PACS today. Official Radiology report was also reviewed. There is bilateral nephrolithiasis along with a new calculus in the lower pole of the calyx of the left kidney. There is cirrhosis and portal hypertension as well. Please see report for details. IMPRESSION: 1. Bilateral flank pain. 2. Urinary tract infection. 3. Recent ureteral stent placement for hydronephrosis, by Dr. Hanson. 4. Hypokalemia. 5. Hypertension. 6. Coronary artery disease with stents. 7. Diabetes mellitus type 2. PLAN: We will admit Mr. Willson to the Hospitalist Service with defensive monitoring for a 24- hour observation. After cultures are drawn, we will start him on empiric IV antibiotics. I checked his past urine cultures, we will go with Zosyn intravenously for now. We will go ahead and consult Dr. Hanson who had recently placed stents to evaluate him and we will keep him n.p.o. for now. We will go ahead and hold his warfarin and check his PT and INR in the History And Physical [address] [address] NAME: ERNA WILLSON : 55 STATUS : ADM Elicia PAT#: [id number] AGE: 61 ADM/REG DATE : 03/15/17 MR#: [id number] REPORT SERV DATE: 03/15/17 DICTATED BY: ALVINO DELCID DATE: 03/15/17 REPORT STATUS : Draft TRANSCRIBED BY: MODL DATE: 03/15/17 morning again. We will replace his potassium, follow chemistry and CBC in the morning, and also hold his Diamox. We will be following chemistry and CBC in the morning. We will establish pain control with morphine on an as-needed basis very cautiously and check his blood sugars and cover him with NovoLog given subcutaneously per sliding scale. He will be on SCDs for DVT prophylaxis while he is here. I have discussed the above plans with the patient and his . Questions were answered and they are agreeable to the above recommendations. Please see today's orders for details. Hospitalist Service will be following him during his stay here. /LUPILLO Alvino Delcid M.D. / [id number] CC: Lisa Luevano M.D.
[~2017-03-14 23:59] MED LIST changes: +*UNABLE3; +AZO-STANDARD95 MG PO; +BREO ELLIPTA 21 EACH INH; +C5 PO; +CEFT5 PO; +FLONASE NAS; +HUMALOG SC; +IMDUR30 PO; +INCRUSE ELLI62.5 MCG INH; +LIPITOR40 PO; +PCET PO; +POLY-IRON PO; +PYR100B PO; +SINGULAIR1 PO; +VENTOLIN HFA INH
[2017-03-15 00:13] LABS: BASOPHILS 0.2 %; BASOPHILS ABSOLUTE 0.01 10/3/uL (0.0-0.16); EOSINOPHILS 1.3 %; EOSINOPHILS ABSOLUTE 0.08 10/3/uL (0.0-0.53); HEMATOCRIT 32.2 % (40.0-51.0); HEMOGLOBIN 10.5 g/dL (13.6-17.8); IMMATURE GRANULOCYTES 0.2 %; IMMATURE GRANULOCYTES ABSOLUTE 0.01 10/3/uL (0.0-0.11); LYMPHOCYTES 10.3 %; LYMPHOCYTES ABSOLUTE 0.66 10/3/uL (0.67-4.30); MEAN CORPUS HGB CONC 32.6 g/dL (32.0-36.0); MEAN CORPUSCULAR HEMOGLOB 27.3 pg (26.0-34.0); MONOCYTES 10.2 %; MONOCYTES ABSOLUTE 0.65 10/3/uL (0.21-1.20); NEUTROPHILS 77.8 %; NEUTROPHILS ABSOLUTE 4.99 10/3/uL (2.02-8.40); RBC DISTRIBUTION WIDTH 14.7 % (12.0-16.0); RED CELL COUNT 3.85 10/6/uL (4.7-6.1)
[2017-03-15 00:18] LABS: ER CBC TAT 0 Hrs 02 Mins; MANUAL DIFF NO %; MEAN CORPUSCULAR VOLUME 83.6 fL (80-100); PLATELET COUNT 141 10/3/uL (150-400); WHITE BLOOD CELLS 6.4 10/3/uL (4.5-10.5)
[2017-03-15 00:22] LABS: INTERNATIONAL NORMAL RATI 2.1 UNITS (-)
[2017-03-15 00:23] LABS: PARTIAL THROMBO TIME 50.2 SEC (22.5-37.2)
[2017-03-15 00:25] LABS: ASCORBIC ACID (UR NOT ORDER) NEG (NEG); BILIRUBIN, URINE NEGATIVE (NEG); ER URINALYSIS TAT 0 Hrs 00 Mins; KETONE, URINE NEGATIVE (NEG); LEUKOCYTE ESTERASE(NOT OR LARGE (NEG); NITRITE (URINE) NEG (NEG); WBC (NOT ORDERED) (RFLEX) > 182 (0-5)
[2017-03-15 00:27] LABS: A/G RATIO 0.7 (0.7-1.9); ALBUMIN 2.7 G/DL (3.5-5.0); BUN (BLOOD UREA NITROGEN) 17 MG/DL (6-23); CALCIUM, SERUM 8.1 MG/DL (8.5-10.4); CHLORIDE, SERUM 114 MMOL/L (96-112); CO2 (CARBON DIOXIDE) 20 MMOL/L (24-34); CREATININE 0.94 MG/DL (0.70-1.30); GFR AFRICAN AMERICAN 101 ML/MIN (>=60); GFR NON AFRICAN AMERICAN 87 ML/MIN (>=60); GLOBULIN 3.9 G/DL (2.5-4.1); POTASSIUM, SERUM 3.3 MMOL/L (3.5-5.3); SGOT(AST) 23 U/L (5-40); SGPT(ALT) 17 U/L (5-65); SODIUM, SERUM 142 MMOL/L (135-148); TOTAL BILIRUBIN 0.5 MG/DL (0-1.2); TOTAL PROTEIN 6.6 G/DL (6.0-8.5)
[2017-03-15 00:28] LABS: PROTIME (NOT ORD) 23.5 SEC (12.0-14.5)
[2017-03-15 00:29] LABS: ALKALINE PHOSPHATASE 124 U/L (45-117); GLUCOSE, SERUM 167 MG/DL (60-99)
[2017-03-15] MEDS ORDERED: PROTONIX PO (02:41)
[2017-03-15] MEDS ORDERED: PRAVACHOL40 MG PO (02:41)
[2017-03-15] MEDS ORDERED: NITROSTAT0.4 MG SL (02:41)
[2017-03-15] MEDS ORDERED: PLAVIX PO (02:41)
[2017-03-15] MEDS ORDERED: BREO ELLIPTA 21 EACH INH (02:43)
[2017-03-15] MEDS ORDERED: Generlac 10 Gm/15 Ml (02:43)
[2017-03-15] MEDS ORDERED: SINGULAIR1 PO (02:44)
[2017-03-15] MEDS ORDERED: VENTOLIN HFA INH (02:44)
[2017-03-15] MEDS ORDERED: IMDUR30 PO (02:45)
[2017-03-15] MEDS ORDERED: COZ50 PO (02:46)
[2017-03-15] MEDS ORDERED: L20 PO (02:46)
[2017-03-15] MEDS ORDERED: FLONASE NAS (02:46)
[2017-03-15] MEDS ORDERED: C5 PO (02:47)
[2017-03-15] MEDS ORDERED: DIAMSEQ PO ×2 (02:47→03:10)
[2017-03-15] MEDS ORDERED: GLUCPH8 PO (02:47)
[2017-03-15] MEDS ORDERED: NEUR300 PO (02:47)
[2017-03-15] MEDS ORDERED: HUMALOG MIX SC (02:48)
[2017-03-15] MEDS ORDERED: NORCO1 TA1 PO (03:12)
[2017-03-15] MEDS ORDERED: INCRUSE ELLI62.5 MCG INH (03:13)
[2017-03-15] MEDS ORDERED: ATRONASAL6 NAS (03:13)
[2017-03-15] MEDS ORDERED: ALTOREX150 MG PO (03:14)
[2017-03-15] MEDS ORDERED: LIPITOR20 PO (03:15)
[2017-03-15 03:37] LABS: LACTATE 1.1 MMOL/L (0.3-2.4)
[2017-03-16 06:25] LABS: HEMATOCRIT 31.4 % (40.0-51.0); MEAN CORPUS HGB CONC 31.8 g/dL (32.0-36.0); MEAN CORPUSCULAR HEMOGLOB 26.9 pg (26.0-34.0); MEAN CORPUSCULAR VOLUME 84.4 fL (80-100); MEAN PLATELET VOLUME 9.9 fL (9.2-13.0); PLATELET COUNT 134 10/3/uL (150-400); RBC DISTRIBUTION WIDTH 15.3 % (12.0-16.0); RED CELL COUNT 3.72 10/6/uL (4.7-6.1); WHITE BLOOD CELLS 5.7 10/3/uL (4.5-10.5)
[2017-03-16 06:27] LABS: MANUAL DIFF YES %
[2017-03-16 06:32] LABS: INTERNATIONAL NORMAL RATI 2.5 UNITS (-); PROTIME (NOT ORD) 26.7 SEC (12.0-14.5)
[2017-03-16 06:40] LABS: BUN (BLOOD UREA NITROGEN) 15 MG/DL (6-23); CALCIUM, SERUM 7.5 MG/DL (8.5-10.4); CHLORIDE, SERUM 114 MMOL/L (96-112); CO2 (CARBON DIOXIDE) 19 MMOL/L (24-34); GFR AFRICAN AMERICAN 75 ML/MIN (>=60); GFR NON AFRICAN AMERICAN 65 ML/MIN (>=60); POTASSIUM, SERUM 3.2 MMOL/L (3.5-5.3); SODIUM, SERUM 142 MMOL/L (135-148)
[2017-03-16 06:41] LABS: GLUCOSE, SERUM 99 MG/DL (60-99)
[2017-03-16 06:48] LABS: BAND NEUTROPHILS 8 %; BASOPHILS 1 %; BASOPHILS ABSOLUTE (CALC) 0.06 10/3/uL (0.0-0.16); LYMPHOCYTES 10 %; LYMPHOCYTES ABSOLUTE (CALC) 0.57 10/3/uL (0.67-4.30); MONOCYTES 9 %; MONOCYTES ABSOLUTE (CALC) 0.51 10/3/uL (0.21-1.20); NEUTROPHILS ABSOLUTE (CALC) 4.56 10/3/uL (2.02-8.40); PLATELET ESTIMATE SLT DEC (ADEQUATE); POLYCHROMASIA 1+ (2-5/OIF) (0-1/OIF); SEGMENTED NEUTROPHIL (0) 72 %; TOTAL NUCLEATED CELLS 100
[2017-03-16 07:27] LABS: PROCALCITONIN 0.33 ng/mL (<0.5)
[2017-03-16 13:21] LABS: BUN (BLOOD UREA NITROGEN) 15 MG/DL (6-23); CALCIUM, SERUM 7.5 MG/DL (8.5-10.4); CHLORIDE, SERUM 115 MMOL/L (96-112); CO2 (CARBON DIOXIDE) 19 MMOL/L (24-34); CREATININE 1.08 MG/DL (0.70-1.30); GFR AFRICAN AMERICAN 85 ML/MIN (>=60); GFR NON AFRICAN AMERICAN 74 ML/MIN (>=60); GLUCOSE, SERUM 106 MG/DL (60-99); POTASSIUM, SERUM 3.3 MMOL/L (3.5-5.3); SODIUM, SERUM 145 MMOL/L (135-148)
[2017-03-17 06:13] LABS: BASOPHILS 0.3 %; BASOPHILS ABSOLUTE 0.01 10/3/uL (0.0-0.16); EOSINOPHILS 2.4 %; EOSINOPHILS ABSOLUTE 0.09 10/3/uL (0.0-0.53); HEMOGLOBIN 9.1 g/dL (13.6-17.8); IMMATURE GRANULOCYTES 0.3 %; IMMATURE GRANULOCYTES ABSOLUTE 0.01 10/3/uL (0.0-0.11); LYMPHOCYTES 15.1 %; LYMPHOCYTES ABSOLUTE 0.57 10/3/uL (0.67-4.30); MEAN CORPUS HGB CONC 31.4 g/dL (32.0-36.0); MEAN CORPUSCULAR HEMOGLOB 26.6 pg (26.0-34.0); MEAN CORPUSCULAR VOLUME 84.8 fL (80-100); MEAN PLATELET VOLUME 9.9 fL (9.2-13.0); MONOCYTES 12.5 %; MONOCYTES ABSOLUTE 0.47 10/3/uL (0.21-1.20); NEUTROPHILS 69.4 %; NEUTROPHILS ABSOLUTE 2.62 10/3/uL (2.02-8.40); PLATELET COUNT 135 10/3/uL (150-400); RBC DISTRIBUTION WIDTH 15.4 % (12.0-16.0); RED CELL COUNT 3.42 10/6/uL (4.7-6.1); WHITE BLOOD CELLS 3.8 10/3/uL (4.5-10.5)
[2017-03-17 06:14] LABS: MANUAL DIFF NO %
[2017-03-17 06:17] LABS: INTERNATIONAL NORMAL RATI 2.4 UNITS (-); PROTIME (NOT ORD) 25.9 SEC (12.0-14.5)
[2017-03-17 06:25] LABS: BUN (BLOOD UREA NITROGEN) 17 MG/DL (6-23); CALCIUM, SERUM 7.5 MG/DL (8.5-10.4); CHLORIDE, SERUM 118 MMOL/L (96-112); CO2 (CARBON DIOXIDE) 19 MMOL/L (24-34); GFR AFRICAN AMERICAN 94 ML/MIN (>=60); GFR NON AFRICAN AMERICAN 81 ML/MIN (>=60); GLUCOSE, SERUM 101 MG/DL (60-99); POTASSIUM, SERUM 3.8 MMOL/L (3.5-5.3); SODIUM, SERUM 145 MMOL/L (135-148)
[2017-03-18 05:55] LABS: HEMATOCRIT 30.9 % (40.0-51.0); HEMOGLOBIN 9.5 g/dL (13.6-17.8); MEAN CORPUS HGB CONC 30.7 g/dL (32.0-36.0); MEAN CORPUSCULAR HEMOGLOB 26.8 pg (26.0-34.0); MEAN CORPUSCULAR VOLUME 87.3 fL (80-100); MEAN PLATELET VOLUME 10.6 fL (9.2-13.0); PLATELET COUNT 145 10/3/uL (150-400); RBC DISTRIBUTION WIDTH 15.5 % (12.0-16.0); RED CELL COUNT 3.54 10/6/uL (4.7-6.1)
[2017-03-18 05:58] LABS: MANUAL DIFF YES %
[2017-03-18 06:03] LABS: INTERNATIONAL NORMAL RATI 1.8 UNITS (-)
[2017-03-18 06:04] LABS: PROTIME (NOT ORD) 20.6 SEC (12.0-14.5)
[2017-03-18 06:16] LABS: BUN (BLOOD UREA NITROGEN) 14 MG/DL (6-23); CALCIUM, SERUM 8.1 MG/DL (8.5-10.4); CHLORIDE, SERUM 117 MMOL/L (96-112); CO2 (CARBON DIOXIDE) 18 MMOL/L (24-34); CREATININE 0.91 MG/DL (0.70-1.30); GFR AFRICAN AMERICAN 105 ML/MIN (>=60); GFR NON AFRICAN AMERICAN 91 ML/MIN (>=60); GLUCOSE, SERUM 118 MG/DL (60-99); SODIUM, SERUM 144 MMOL/L (135-148)
[2017-03-18 06:45] LABS: BAND NEUTROPHILS 3 %; HYPOCHROMIA 1+ (3-10/OIF) (0-2/OIF); LYMPHOCYTES 17 %; LYMPHOCYTES ABSOLUTE (CALC) 0.51 10/3/uL (0.67-4.30); MONOCYTES 10 %; NEUTROPHILS ABSOLUTE (CALC) 2.19 10/3/uL (2.02-8.40); PLATELET ESTIMATE SLT DEC (ADEQUATE); SEGMENTED NEUTROPHIL (0) 70 %; TOTAL NUCLEATED CELLS 100
[2017-03-18] MEDS ORDERED: PYR100B PO (09:01)
[2017-03-18] MEDS ORDERED: LEVAQUIN750 MG PO (09:01)
[2017-04-18] MEDS ORDERED: PROVHFA INH (16:59)
[2017-04-18] MEDS ORDERED: PROTONIX PO (16:59)
[2017-04-18] MEDS ORDERED: SINGULAIR1 PO (17:00)
[2017-04-18] MEDS ORDERED: D 5000 PO (17:00)
[2017-04-18] MEDS ORDERED: GLUCPH8 PO (17:01)
[2017-04-18] MEDS ORDERED: L20 PO (17:01)
[2017-04-18] MEDS ORDERED: CYANO1000T PO (17:01)
[2017-04-18] MEDS ORDERED: POLY IRON 150 MG PO (17:02)
[2017-04-18] MEDS ORDERED: LIPITOR40 PO (17:02)
[2017-04-18] MEDS ORDERED: C5 PO (17:03)
[2017-04-18] MEDS ORDERED: NEUR300 PO (17:03)
[2017-04-18] MEDS ORDERED: NITROSTAT0.4 MG SL (17:03)
[2017-04-18] MEDS ORDERED: COZ50 PO (17:04)
[2017-04-18] MEDS ORDERED: IMDUR30 PO (17:04)
[2017-04-18] MEDS ORDERED: PLAVIX PO (17:05)
[2017-04-18] MEDS ORDERED: INCRUSE ELLI62.5 MCG INH (17:05)
[2017-04-18] MEDS ORDERED: LANTUS SC (17:05)
[2017-04-18] MEDS ORDERED: NOVOLOG SC (17:05)
[2017-04-18] MEDS ORDERED: BREO ELLIPTA 21 EACH INH (17:06)
[2017-04-18] MEDS ORDERED: ATRONASAL6 NAS (17:07)
[2017-04-18] MEDS ORDERED: FLONASE NAS (17:07)
[2017-04-28] MEDS ORDERED: PERCOCET 10/3251 TAB PO (20:04)
[2017-04-28] MEDS ORDERED: FLOMAX4 PO (20:05)
[2017-06-21] MEDS ORDERED: BREO ELLIPTA 21 EACH INH (01:19)
[2017-06-21] MEDS ORDERED: FLONASE NAS (01:19)
[2017-06-21] MEDS ORDERED: INCRUSE ELLI62.5 MCG INH (01:19)
[2017-06-21] MEDS ORDERED: ATRONASAL6 NAS (01:19)
[2017-06-21] MEDS ORDERED: ATV1 PO (01:20)
[2017-06-21] MEDS ORDERED: SINGULAIR1 PO (01:20)
[2017-06-21] MEDS ORDERED: C5 PO (01:20)
[2017-06-21] MEDS ORDERED: VENTOLIN HFA INH (01:20)
[2017-06-21] MEDS ORDERED: LIPITOR40 PO (01:21)
[2017-06-21] MEDS ORDERED: NITROSTAT0.4 MG SL (01:21)
[2017-06-21] MEDS ORDERED: IMDUR30 PO (01:21)
[2017-06-21] MEDS ORDERED: NEUR300 PO (01:22)
[2017-06-21] MEDS ORDERED: POLY-IRON 150MG PO (01:23)
[2017-06-21] MEDS ORDERED: COZ50 PO (01:23)
[2017-06-21] MEDS ORDERED: FLOMAX4 PO (01:23)
[2017-06-21] MEDS ORDERED: L20 PO (01:23)
[2017-06-21] MEDS ORDERED: GLUCPH8 PO (01:24)
[2017-06-21] MEDS ORDERED: NOVOLOG SC ×2 (01:26)
[2017-06-21] MEDS ORDERED: PLAVIX PO (01:26)
[2017-06-21] MEDS ORDERED: PROTONIX PO (01:27)
[2017-06-21] MEDS ORDERED: VITAMIN D31000 UNIT PO (01:28)
[2017-06-21] MEDS ORDERED: VITAMIN B-122500 MCG SL (01:28)
[2017-06-21] MEDS ORDERED: LANTUS SC (01:28)
== END 2017-03-18 13:54 | disposition home or self-care (01) | DRG 699 ==
LOC: ER 23:59 → CDU1 03-15 03:17 → 4SO 03-15 03:42 → SDC/OF 03-17 10:48 → 4SO 03-17 10:50
PROVIDERS: Hospitalist; Nurse Practitioner Family; Specialist; Urology
DX: T83.511A Infection and inflammatory reaction due to indwelling urethral catheter, initial encounter (principal); N13.6 Pyonephrosis; Z99.81 Dependence on supplemental oxygen; Z68.41 Body mass index [BMI] 40.0-44.9, adult; I48.0 Paroxysmal atrial fibrillation; I10 Essential (primary) hypertension; Y84.6 Urinary catheterization as the cause of abnormal reaction of the patient, or of later complication, without mention of misadventure at the time of the procedure; E87.6 Hypokalemia; I25.10 Atherosclerotic heart disease of native coronary artery without angina pectoris; Z95.5 Presence of coronary angioplasty implant and graft; E11.9 Type 2 diabetes mellitus without complications; Z87.442 Personal history of urinary calculi; E66.9 Obesity, unspecified; Z79.01 Long term (current) use of anticoagulants; Z79.02 Long term (current) use of antithrombotics/antiplatelets; G47.33 Obstructive sleep apnea (adult) (pediatric); J44.9 Chronic obstructive pulmonary disease, unspecified; Z87.891 Personal history of nicotine dependence; Z79.82 Long term (current) use of aspirin; B96.5 Pseudomonas (aeruginosa) (mallei) (pseudomallei) as the cause of diseases classified elsewhere
CPT/HCPCS: 74176; 80048; 80053; 81001; 82962; 83605; 83735; 84132; 84145; 85025; 85610; 85730; 87040; 87077; 87086; 87186; 93005; 94640; 96365; 96375; 99285; A9270-GY; J0692; J1956; J2405; J2543